=== PATIENT | female | born 1970 | race Caucasian/White ===

== ENCOUNTER → 2018-08-06 | Day surgery (SDC) | payer OTHER ==
[2018-08-03 14:35] LABS: BASOPHILS # (AUTO) 0.1 (0.0-0.1); BASOPHILS % 0.7 % (0.0-1.0); EOSINOPHILS # (AUTO) 0.3 (0.0-0.4); EOSINOPHILS % 2.9 % (0.0-6.0); HEMATOCRIT 42.6 % (34.2-44.1); HEMOGLOBIN 13.8 g/dL (12.0-16.0); LYMPHOCYTES # (AUTO) 2.8 (1.0-3.2); LYMPHOCYTES % 26.5 % (18.0-39.1); MEAN CORPUSCULAR HEMOGLOBIN 25.7 pg (28-32); MEAN CORPUSCULAR HGB CONC 32.4 g/dL (31-35); MEAN CORPUSCULAR VOLUME 79.3 fL (81-99); MONOCYTES # (AUTO) 0.4 (0.2-0.8); NEUTROPHILS % 65.2 % (38.7-80.0); PLATELET COUNT 263 x10e3/uL (140-360); RED BLOOD COUNT 5.37 x10e6/uL (3.6-5.1); RED CELL DISTRIBUTION WIDTH 14.6 % (11.7-14.4)
[2018-08-03 14:58] LABS: INR 0.88; PROTHROMBIN TIME 12.4 seconds (11.9-14.5)
[2018-08-03 15:01] LABS: ALANINE AMINOTRANSFERASE 35 IU/L (0-55); ALBUMIN 3.7 g/dL (3.5-5.0); ALBUMIN/GLOBULIN RATIO 1.1 (0.8-2.0); ALKALINE PHOSPHATASE 137 IU/L (40-150); ANION GAP 14.1 mmol/L (8-16); BLOOD UREA NITROGEN 12 mg/dL (7-26); BUN/CREATININE RATIO 16 (6-25); CARBON DIOXIDE 29 mmol/L (22-29); CHLORIDE 100 mmol/L (98-107); CREATININE, SERUM 0.75 mg/dL (0.57-1.11); EST GLOMERULAR FILTRATION RATE > 60 ML/MIN (60-); GLUCOSE 184 mg/dL (74-118); POTASSIUM 4.1 mmol/L (3.5-5.1); SODIUM 139 mmol/L (136-145)
[~2018-08-06] MED LIST: AMARYL4 MG PO; BENADRYL25 M1; BUDESONIDE0.5 MG/2 M NEB; CYCLOBENZAPRINE5 MG PO; CYMBALTA30 MG; DEXILANT60 MG; DICYCLOMINE HCL20 MG PO; FENOGLIDE40 MG PO; FENTANYL CITRATE/PF 100MCG/2 ML INJ ONE; GABAPENTIN400 MG PO; HUMULIN N100 UNITS/ SQ; HUMULIN R100 UNIT/2 SQ; LEVOTHYROXINE75 MCG PO; MIDAZOLAM HCL 2 MG/2 ML VIAL ONE; MORPHINE SULFAT30 M2 PO; NOVALOG; ONDANSETRON ODT8 MG; PAXIL40 MG PO; PRILOSEC20 MG PO; PROPOFOL IV EMULSION 10 MG/ML 50 ML VIAL ONE; REGLAN5 MG; SUCRALFATE; TALWIN30 MG/1 M1 PO; TIZANIDINE HCL4 M1; TRESIBA; ZOCOR40 MG PO; [UNRECOGNIZED DRUG - OTHER]; [UNRECOGNIZED DRUG - REMARK]
--- OUTSIDE RECORDS SUMMARY | 2018-08-06 08:32 | XMS REPORT ---
[facility] Address Unknown Phone Unavailable Care Team Providers [employer] Sales Manager Name Role Phone Unavailable Unavailable Payers Payer Name Policy Type Policy Number Effective Date Expiration Date Problems This patient has no known problems. Allergies, Adverse Reactions, Alerts Allergy Name Allergy Type Status Severity Reaction(s) Onset Date Inactive Date Treating Clinician Comments NSAIDS (Non-Steroidal Anti-Inflamma DA Active [place] 2017-08-29 00:00:00 Penicillins DA Active [place] 2017-08-29 00:00:00 Sulfa (Sulfonamide Antibiotics) DA Active [place] 2017-08-29 00:00:00 Medications This patient has no known medications. Encounters Start Date/Time End Date/Time Encounter Type Admission Type Attending Clinicians Care Facility Care Department Encounter ID 2018-08-05 00:00:00 2018-08-05 00:00:00 Outpatient [facility] [id number] 2018-05-13 11:16:00 2018-05-13 11:16:00 Outpatient [facility] [id number] 2018-04-19 00:00:00 2018-04-19 00:00:00 Outpatient [facility] [id number] 2018-03-18 00:00:00 2018-03-18 00:00:00 Outpatient [facility] [id number] 2018-03-12 00:00:00 2018-03-12 00:00:00 Outpatient [facility] [id number] 2018-02-16 00:00:00 2018-02-16 00:00:00 Outpatient [facility] [id number] 2018-02-10 13:33:08 2018-02-10 13:33:08 Outpatient [facility] [id number] 2018-02-04 00:00:00 2018-02-04 00:00:00 Outpatient [facility] [id number] 2018-01-21 10:52:33 2018-01-21 10:52:33 Outpatient [facility] [id number] 2017-12-29 00:00:00 2017-12-29 00:00:00 Outpatient [facility] [id number] 2017-10-29 10:59:31 2017-10-29 10:59:31 Outpatient [facility] [id number] 2017-10-28 00:00:00 2017-10-28 00:00:00 Outpatient [facility] [id number] 2017-09-25 00:00:00 2017-09-25 00:00:00 Outpatient [facility] [id number] 2017-09-21 00:00:00 2017-09-21 00:00:00 Outpatient [facility] [id number] 2017-09-14 00:00:00 2017-09-14 00:00:00 Outpatient [facility] [id number] 2017-09-14 00:00:00 2017-09-14 00:00:00 Outpatient [facility] [id number] 2017-09-09 00:00:00 2017-09-09 00:00:00 Outpatient [facility] [id number] 2017-09-07 15:04:01 2017-09-07 15:04:01 Outpatient [facility] [id number] 2017-08-13 10:55:26 2017-08-13 10:55:26 Outpatient [facility] [id number] 2017-07-06 00:00:00 2017-07-06 00:00:00 Outpatient [facility] [id number] 2017-06-25 08:52:46 2017-06-25 08:52:46 Outpatient [facility] [id number] 2017-06-25 08:39:40 2017-06-25 08:39:40 Outpatient [facility] [id number] 2017-06-25 08:28:44 2017-06-25 08:28:44 Outpatient [facility] [id number] 2017-06-25 08:02:52 2017-06-25 08:02:52 Outpatient [facility] [id number] 2017-06-22 13:08:43 2017-06-22 13:08:43 Outpatient [facility] [id number] 2017-06-22 00:00:00 2017-06-22 00:00:00 Outpatient [facility] [id number] 2017-06-22 00:00:00 2017-06-22 00:00:00 Outpatient [facility] [id number] 2017-06-18 00:00:00 2017-06-18 00:00:00 Outpatient [facility] [id number] 2017-05-21 10:20:59 2017-05-21 10:20:59 Outpatient [facility] [id number] 2017-05-21 00:00:00 2017-05-21 00:00:00 Outpatient [facility] [id number] Results Test Description Test Time Test Comments Text Results Atomic Results Result Comments - XR L-SPINE 2/3 VIEWS 2018-07-09 13:36:00 Name: RAFIQ AVENDAÑO [facility] : 1970 Age/S:47 /F [address] [facility] Unit#:[id number] Loc: [place] [address] Phys: Thomas Herbert TOP LIFT COMPRESSER Dis Date: PHONE #: [phone] Status: REG ER FAX #: [phone] Exam Date: 07/09/2018 Reason: PAIN EXAMS: CPT CODE: [id number] XR L-SPINE 2/3 VIEWS 25886 HISTORY: Pain. COMPARISON: None available. Lumbar spine series, 3 views: No acute fracture or dislocation. Vertebral body heights are maintained. Narrowed disc space at L5-S1 level. SI joints are preserved. IMPRESSION: No acute fracture or dislocation. Vertebral body heights are maintained. Vascular calcifications. at 1334 Reported and signed by: Fabio Quintana M.D. CC: Kobe Solano MD; Thomas Herbert Technologist: KARAN ORTEGA, RT(R),CT Trnscrpt Data: 07/09/2018 ([id number]) [id number] Orig Print D/T: S: 07/09/2018 (6666) PAGE 1 Signed Report
[2018-08-06 12:05] VITALS: BP 108/60
--- NOTE | 2018-08-06 19:30 | Operative Report ---
DATE OF PROCEDURE: 08/06/2018 SURGEON: Souarv Garcia MD PROCEDURE: Colonoscopy to 30 cm from the anal verge. INDICATIONS FOR PROCEDURE: Fecal incontinence, history of Crohn disease. MEDICATION: The patient was done under MAC. Please see anesthesiologist's note. PROCEDURE IN DETAIL: With the patient in left lateral decubitus position, flexible fiberoptic Olympus colonoscope was inserted into the rectum and advanced to approximately 30 cm from the anal verge. Scope could not be advanced any further due to large amount of retained fecal material. Whatever was visualized, the mucosa overlying the sigmoid and the rectum grossly appeared to be unremarkable. The scope was then retroflexed into the distal rectum where small internal hemorrhoids were noted, none of which was actively bleeding. The scope was then straightened out, it was subsequently withdrawn. The patient tolerated the procedure well. IMPRESSION: 1. Colonoscopy to approximately 30 cm from the anal verge, did not proceed any further secondary to poor prep. 2. Internal hemorrhoids, none actively bleeding. PLAN: The patient will need a repeat colonoscopy after a better prep. Sourav Garcia MD [facility] [place][id number] cc: Elaine Roth MD
== END | disposition home or self-care (01) ==
LOC: OR 08:28
PROVIDERS: ATTEND Internal Medicine Gastroenterology
DX: K50.90 Crohn's disease, unspecified, without complications (principal); K64.8 Other hemorrhoids; K59.00 Constipation, unspecified; G47.33 Obstructive sleep apnea (adult) (pediatric); D64.9 Anemia, unspecified; E11.9 Type 2 diabetes mellitus without complications; M32.9 Systemic lupus erythematosus, unspecified; M06.9 Rheumatoid arthritis, unspecified; K21.9 Gastro-esophageal reflux disease without esophagitis; K76.0 Fatty (change of) liver, not elsewhere classified; M79.7 Fibromyalgia; F32.9 Major depressive disorder, single episode, unspecified; F41.9 Anxiety disorder, unspecified; F17.200 Nicotine dependence, unspecified, uncomplicated; Z88.0 Allergy status to penicillin; Z88.2 Allergy status to sulfonamides; Z88.8 Allergy status to other drugs, medicaments and biological substances; Z01.812 Encounter for preprocedural laboratory examination; Z79.4 Long term (current) use of insulin; Z86.19 Personal history of other infectious and parasitic diseases
CPT/HCPCS: 36415 ×2; 45378; 80053; 82948; 85025; 85610; 85730; J2250; J2704

== ENCOUNTER → 2018-09-25 | Day surgery (SDC) | payer OTHER ==
[~2018-09-25] MED LIST changes: +GLUCAGON FOR INJ 1 MG VIAL ONE; +HYOSCYAMINE SULFATE 0.5 MG/ML INJ ONE; +LIDOCAINE HCL 2% LOCAL INJ 5 ML SDV VIAL INJ ONE; -NOVALOG; +NOVALOG SC; -TIZANIDINE HCL4 M1; +TIZANIDINE HCL4 M1 PO
[2018-09-25 10:20] VITALS: BP 111/66
--- NOTE | 2018-09-25 11:19 | Operative Report ---
DATE OF PROCEDURE: 09/25/2018 SURGEON: Sourav Garcia MD PROCEDURE: Colonoscopy and polypectomy with biopsies. INDICATIONS FOR PROCEDURE: History of Crohn disease, fecal urgency, rule out IBD exacerbation. MEDICATIONS: The patient was done under MAC, please see anesthesiologist's note. PROCEDURE IN DETAIL: With the patient in left lateral decubitus position, flexible fiberoptic Olympus colonoscope was inserted into the rectum with ease and advanced all the way to the cecum. A minute polyp was noted in the cecal pouch that was removed for hot biopsy forceps and site was hemoclipped. Ileocecal valve was intubated and the scope was advanced into the terminal ileum. Biopsies were obtained. The scope was then withdrawn back into the colon. It was then withdrawn slowly. Mucosa overlying the ascending and the transverse appeared to be within normal limits. Mild patchy inflammatory changes were noted in the left colon and rectum. Random biopsies were obtained. Two polyps were hot biopsied from the sigmoid. The scope was then retroflexed into the distal rectum. Small internal hemorrhoids were noted, none of which was actively bleeding. The scope was then straightened out, it was subsequently withdrawn. The patient tolerated the procedure well. IMPRESSION: 1. Cecal polyp hot biopsied, site hemoclipped. 2. Mild patchy left-sided colitis. 3. Sigmoid colon polyps x2, hot biopsied. 4. Proctitis, mild, biopsied. 5. Internal hemorrhoids, none actively bleeding. PLAN: Follow up histology. Follow up stool studies. Initiate VSL#3 one p.o. daily. The patient might benefit from a followup colonoscopy in 3 years. Sourav Garcia MD [facility] [place] /[id number] cc: Skyla Bourgeois DO
[2018-09-25 13:38] LABS: C DIFFICILE TOXIN A&B AMP PROB NEGATIVE (NEGATIVE)
[2018-09-25 14:02] LABS: WBC,FECAL (FECAL LACTOFERRIN) NEGATIVE (NEGATIVE)
== END | disposition home or self-care (01) ==
LOC: OR 05:40
PROVIDERS: ATTEND Internal Medicine Gastroenterology
DX: D12.5 Benign neoplasm of sigmoid colon (principal); K59.00 Constipation, unspecified; K50.90 Crohn's disease, unspecified, without complications; K21.9 Gastro-esophageal reflux disease without esophagitis; R12 Heartburn; R11.0 Nausea; G47.33 Obstructive sleep apnea (adult) (pediatric); E03.9 Hypothyroidism, unspecified; K63.5 Polyp of colon; K51.50 Left sided colitis without complications; K62.89 Other specified diseases of anus and rectum; K64.8 Other hemorrhoids; Z01.810 Encounter for preprocedural cardiovascular examination
CPT/HCPCS: 36415; 45384; 82948; 83630; 83993; 86256; 86671; 87045; 87177; 87328; 87493; 93005; J1610; J1980; J2001; J2250; J2704; 45380

== ENCOUNTER → 2020-01-02 | Day surgery (SDC) | payer OTHER ==
[~2020-01-02] MED LIST changes: -BENADRYL25 M1; +BENADRYL25 M1 PO; +BENTYL10 MG/1 ML IV; -DEXILANT60 MG; +DEXILANT60 MG PO; -FENTANYL CITRATE/PF 100MCG/2 ML INJ ONE; -GLUCAGON FOR INJ 1 MG VIAL ONE; +HYDROXYZINE HCL25 MG PO; -HYOSCYAMINE SULFATE 0.5 MG/ML INJ ONE; +INSULIN REGULAR, HUMAN 100 UNIT/1 ML 3ML VIAL ONE; -LIDOCAINE HCL 2% LOCAL INJ 5 ML SDV VIAL INJ ONE; +LYRICA100 MG PO; -MIDAZOLAM HCL 2 MG/2 ML VIAL ONE; -PROPOFOL IV EMULSION 10 MG/ML 50 ML VIAL ONE; +REGLAN10 MG PO; +SUCRALFATE1 GM PO; -TRESIBA; +TRESIBA SQ; +ZOFRAN8 MG PO
[2020-01-02 10:15] VITALS: BP 124/67
--- NOTE | 2020-01-02 12:33 | Operative Report ---
DATE OF PROCEDURE: 01/02/2020 SURGEON: Sourav Garcia MD PROCEDURE: EGD with esophageal dilatation and biopsies. INDICATIONS FOR PROCEDURE: Dysphagia. MEDICATIONS: The patient was done under MAC, please see anesthesiologist's note. PROCEDURE IN DETAIL: With the patient in the left lateral decubitus position, a flexible fiberoptic Olympus gastroscope was introduced into the esophagus under direct visualization without any difficulty. There was some patchy erythema noted in distal esophagus. A mild stricture was noted at the GE junction that was dilated to size 52-[place]. The scope was then advanced with ease into the stomach. Mucosa overlying the antrum and the body revealed some patchy intense erythema and low-grade edema in the antrum, and biopsies were obtained from the antrum and the body. The pylorus was intubated with ease and the scope was advanced all the way to the second portion of the duodenum. Biopsies were obtained from the proximal second portion and duodenal bulb. The scope was then withdrawn back into the stomach and retroflexed, and mucosa overlying the fundus and the cardia appeared to be within normal limits. The scope was then straightened out, it was subsequently withdrawn, and the patient tolerated the procedure well. IMPRESSION: 1. Distal esophagitis, mild. 2. Esophageal stricture GE junction, dilated to size 52-[place] Newton. 3. Gastritis, biopsied, biopsies sent to stain for Helicobacter pylori. 4. Rule out sprue. PLAN: Follow up histology. Continue Dexilant 60 mg one p.o. before meals b.i.d. and Carafate 1 g p.o. before meals t.i.d. and at bedtime. Sourav Garcia MD [facility] [place] /[id number] cc: Skyla Bourgeois DO
== END | disposition home or self-care (01) ==
LOC: OR 07:10
PROVIDERS: ATTEND Internal Medicine Gastroenterology
DX: K22.2 Esophageal obstruction (principal); K29.70 Gastritis, unspecified, without bleeding; K20.9 Esophagitis, unspecified; G47.33 Obstructive sleep apnea (adult) (pediatric); F41.9 Anxiety disorder, unspecified; E11.9 Type 2 diabetes mellitus without complications; B15.9 Hepatitis A without hepatic coma; E66.01 Morbid (severe) obesity due to excess calories; Z88.0 Allergy status to penicillin; Z88.2 Allergy status to sulfonamides; Z88.8 Allergy status to other drugs, medicaments and biological substances; Z01.810 Encounter for preprocedural cardiovascular examination; Z01.812 Encounter for preprocedural laboratory examination; Z11.59 Encounter for screening for other viral diseases; Z79.4 Long term (current) use of insulin
CPT/HCPCS: 36415; 43239; 43450; 82948; 93005; U0002; J1817

== ENCOUNTER 2021-12-05 15:34 | Emergency (ER) | payer OTHER ==
[~2021-12-05] VITALS: Ht 170.2 cm; Wt 102.5 kg
[~2021-12-05 15:34] MED LIST changes: +BASAGLAR K100 UNIT/1 SC; -INSULIN REGULAR, HUMAN 100 UNIT/1 ML 3ML VIAL ONE; +VICODIN HP 10-1 EAC1 PO
[2021-12-05] MEDS ORDERED: SODIUM CHLORIDE 0.9% 1000ML 1,000 ML IV ONE (15:45)
[2021-12-05] MEDS ORDERED: ONDANSETRON HCL INJ 2MG/ML 2ML 2 MG/ML VIAL IV PRN (15:45)
[2021-12-05] MEDS ORDERED: INSULIN REGULAR, HUMAN 100 UNIT/1 ML SQ ONE (16:00)
[2021-12-05 16:20] LABS: BASOPHILS # (AUTO) 0.1 (0.0-0.1); BASOPHILS % 0.6 % (0.0-1.0); EOSINOPHILS # (AUTO) 0.2 (0.0-0.4); EOSINOPHILS % 2.2 % (0.0-6.0); HEMATOCRIT 43.6 % (34.2-44.1); LYMPHOCYTES # (AUTO) 3.2 (1.0-3.2); LYMPHOCYTES % 32.9 % (18.0-39.1); MEAN CORPUSCULAR HEMOGLOBIN 21.5 pg (28-32); MEAN CORPUSCULAR HGB CONC 29.8 g/dL (31-35); MEAN CORPUSCULAR VOLUME 71.9 fL (81-99); MONOCYTES # (AUTO) 0.5 (0.2-0.8); MONOCYTES % 4.7 % (4.4-11.3); NEUTROPHILS # (AUTO) 5.7 (2.1-6.9); NEUTROPHILS % 59.1 % (38.7-80.0); PLATELET COUNT 326 x10e3/uL (140-360); RED BLOOD COUNT 6.06 x10e6/uL (3.6-5.1); RED CELL DISTRIBUTION WIDTH 17.2 % (11.7-14.4)
[2021-12-05 16:22] LABS: CLARITY,URINE SL CLOUDY (CLEAR); COLOR,URINE YELLOW (YELLOW); LEUKOCYTE ESTERASE ,URINE NEGATIVE (NEGATIVE); NITRITE,URINE NEGATIVE (NEGATIVE); PROTEIN,URINE DIPSTICK NEGATIVE (NEGATIVE)
[2021-12-05 16:23] LABS: KETONES,URINE NEGATIVE (NEGATIVE); URINE UROBILINOGEN 0.2 mg/dL (0.2 - 1)
[2021-12-05 16:41] LABS: BACTERIA,URINE MODERATE /HPF; EPITHELIAL CELLS,URINE MODERATE /LPF; WBC,URINE (MAN) 0-5 /HPF (0-5); YEAST,URINE MODERATE
[2021-12-05 16:42] LABS: ALANINE AMINOTRANSFERASE 23 IU/L (0-55); ALBUMIN 3.5 g/dL (3.5-5.0); ALBUMIN/GLOBULIN RATIO 0.9 (0.8-2.0); ALKALINE PHOSPHATASE 160 IU/L (40-150); ANION GAP 20.2 mmol/L (8-16); BLOOD UREA NITROGEN 12 mg/dL (7-26); BUN/CREATININE RATIO 15 (6-25); CARBON DIOXIDE 21 mmol/L (22-29); CHLORIDE 96 mmol/L (98-107); CREATINE KINASE 20 IU/L (29-168); CREATININE, SERUM 0.81 mg/dL (0.57-1.11); POTASSIUM 4.2 mmol/L (3.5-5.1); SODIUM 133 mmol/L (136-145)
[2021-12-05 16:45] LABS: GLUCOSE 447 mg/dL (74-118)
[2021-12-05 17:24] LABS: ABG PCO2 42 mmHg (35-45); ABG PH 7.42 (7.35-7.45); ABG PO2 69 mmHg (80-105)
[2021-12-05 17:25] LABS: ABG HCO3 27 mmol/L (22-26); ABG TCO2 28
[2021-12-05] MEDS ORDERED: DIFLUCAN150 MG PO (18:01)
[2021-12-05 18:06] VITALS: BP 138/77
[2021-12-09] MEDS ORDERED: VASCEPA1 GM (07:37)
== END 2021-12-05 18:08 | disposition home or self-care (01) ==
LOC: ER 15:42
DX: E11.65 Type 2 diabetes mellitus with hyperglycemia (principal); J44.9 Chronic obstructive pulmonary disease, unspecified; E03.9 Hypothyroidism, unspecified; K21.9 Gastro-esophageal reflux disease without esophagitis; K76.9 Liver disease, unspecified; E78.5 Hyperlipidemia, unspecified
CPT/HCPCS: 36415; 71045; 80053; 81001; 82550; 82553; 82805; 82948; 84484; 85025; 93005; 99283; J1817; J7030

== ENCOUNTER → 2021-12-09 | Day surgery (SDC) | payer OTHER ==
[2021-12-05 14:16] LABS: BASOPHILS # (AUTO) 0.1 (0.0-0.1); BASOPHILS % 0.7 % (0.0-1.0); EOSINOPHILS # (AUTO) 0.2 (0.0-0.4); EOSINOPHILS % 2.4 % (0.0-6.0); HEMATOCRIT 43.7 % (34.2-44.1); HEMOGLOBIN 12.9 g/dL (12.0-16.0); LYMPHOCYTES # (AUTO) 2.7 (1.0-3.2); LYMPHOCYTES % 29.3 % (18.0-39.1); MEAN CORPUSCULAR HEMOGLOBIN 21.4 pg (28-32); MEAN CORPUSCULAR HGB CONC 29.5 g/dL (31-35); MEAN CORPUSCULAR VOLUME 72.5 fL (81-99); MONOCYTES # (AUTO) 0.5 (0.2-0.8); NEUTROPHILS # (AUTO) 5.8 (2.1-6.9); NEUTROPHILS % 62.1 % (38.7-80.0); PLATELET COUNT 337 x10e3/uL (140-360); RED BLOOD COUNT 6.03 x10e6/uL (3.6-5.1); RED CELL DISTRIBUTION WIDTH 17.1 % (11.7-14.4)
[2021-12-05 14:30] LABS: INR 0.87; PROTHROMBIN TIME 12.6 seconds (11.9-14.5)
[2021-12-05 14:31] LABS: PARTIAL THROMBOPLASTIN TIME 25.2 seconds (23.8-35.5)
[2021-12-05 14:40] LABS: ALBUMIN 3.4 g/dL (3.5-5.0); ALBUMIN/GLOBULIN RATIO 0.9 (0.8-2.0); ANION GAP 17.3 mmol/L (8-16); CALCIUM 9.2 mg/dL (8.4-10.2); CREATININE, SERUM 0.82 mg/dL (0.57-1.11); POTASSIUM 4.3 mmol/L (3.5-5.1)
[~2021-12-09] MED LIST changes: +DIFLUCAN150 MG PO; +FENTANYL CITRATE/PF 100MCG/2 ML INJ ONE; +GLYCOPYRROLATE INJ 0.2 MG/ML VIAL ONE; +MIDAZOLAM HCL 2 MG/2 ML VIAL ONE; +PROPOFOL IV EMULSION 10 MG/ML 20 ML VIAL ONE; +VASCEPA1 GM
[2021-12-09 09:59] VITALS: BP 133/78
[2021-12-14 22:09] LABS: ENDOMYSIAL ANTIBODIES, IGA Negative (Negative)
== END | disposition home or self-care (01) ==
LOC: OR 07:54
PROVIDERS: ATTEND Internal Medicine Gastroenterology
DX: K22.70 Barrett's esophagus without dysplasia (principal); D12.3 Benign neoplasm of transverse colon; K31.7 Polyp of stomach and duodenum; K29.70 Gastritis, unspecified, without bleeding; K50.90 Crohn's disease, unspecified, without complications; K20.90 Esophagitis, unspecified without bleeding; K59.00 Constipation, unspecified; K21.9 Gastro-esophageal reflux disease without esophagitis; K74.60 Unspecified cirrhosis of liver; D64.9 Anemia, unspecified; J44.9 Chronic obstructive pulmonary disease, unspecified; G47.33 Obstructive sleep apnea (adult) (pediatric); E11.9 Type 2 diabetes mellitus without complications; F41.9 Anxiety disorder, unspecified; F17.200 Nicotine dependence, unspecified, uncomplicated; Z88.0 Allergy status to penicillin; Z88.8 Allergy status to other drugs, medicaments and biological substances; Z88.2 Allergy status to sulfonamides; Z01.810 Encounter for preprocedural cardiovascular examination; Z01.812 Encounter for preprocedural laboratory examination; Z20.822 Contact with and (suspected) exposure to COVID-19; Z79.4 Long term (current) use of insulin; Z79.899 Other long term (current) drug therapy
CPT/HCPCS: 0223U; 36415 ×2; 43239; 43450; 45380; 80053; 82784; 82948; 83516; 85025; 85610; 85730; 86141; 86256; 93005; C9113; J2250; J2704; J3010; 45378

== ENCOUNTER 2022-07-18 11:37 | Emergency (ER) | payer OTHER ==
[~2022-07-18] VITALS: Ht 172.7 cm; Wt 101.6 kg
[~2022-07-18 11:37] MED LIST changes: -FENTANYL CITRATE/PF 100MCG/2 ML INJ ONE; -GLYCOPYRROLATE INJ 0.2 MG/ML VIAL ONE; -MIDAZOLAM HCL 2 MG/2 ML VIAL ONE; -PROPOFOL IV EMULSION 10 MG/ML 20 ML VIAL ONE
[2022-07-18] MEDS ORDERED: SODIUM CHLORIDE 0.9% 1000ML 2,000 ML IV ONE (12:30)
[2022-07-18] MEDS ORDERED: FENTANYL CITRATE/PF 100MCG/2 ML INJ IV ONE (12:30)
[2022-07-18 12:36] LABS: BASOPHILS # (AUTO) 0.1 (0.0-0.1); BASOPHILS % 0.5 % (0.0-1.0); EOSINOPHILS # (AUTO) 0.2 (0.0-0.4); EOSINOPHILS % 1.2 % (0.0-6.0); HEMATOCRIT 50.2 % (34.2-44.1); HEMOGLOBIN 14.9 g/dL (12.0-16.0); LYMPHOCYTES # (AUTO) 1.8 (1.0-3.2); LYMPHOCYTES % 10.6 % (18.0-39.1); MEAN CORPUSCULAR HEMOGLOBIN 20.8 pg (28-32); MEAN CORPUSCULAR HGB CONC 29.7 g/dL (31-35); MEAN CORPUSCULAR VOLUME 70.1 fL (81-99); MONOCYTES # (AUTO) 0.5 (0.2-0.8); MONOCYTES % 3.2 % (4.4-11.3); NEUTROPHILS # (AUTO) 14.3 (2.1-6.9); NEUTROPHILS % 84.1 % (38.7-80.0); PLATELET COUNT 395 x10e3/uL (140-360); RED CELL DISTRIBUTION WIDTH 18.6 % (11.7-14.4)
[2022-07-18 12:38] LABS: RED BLOOD COUNT 7.16 x10e6/uL (3.6-5.1)
[2022-07-18 12:42] LABS: INR 1.1; PROTHROMBIN TIME 14.4 seconds (11.9-14.5)
[2022-07-18 12:50] LABS: ALBUMIN 3.3 g/dL (3.5-5.0); CALCIUM 8.5 mg/dL (8.4-10.2); CREATININE, SERUM 0.93 mg/dL (0.57-1.11)
[2022-07-18 12:51] LABS: MAGNESIUM 1.5 MG/DL (1.3-2.1)
[2022-07-18] MEDS ORDERED: IOPAMIDOL 370 MG/ML 100 ML INFUS..BTL INJ ONE (13:17)
[2022-07-18] MEDS ORDERED: METRONIDAZOLE500 MG PO (14:19)
[2022-07-18] MEDS ORDERED: CIPRO500 MG PO ×2 (14:19→15:27)
[2022-07-18] MEDS ORDERED: PROMETHAZINE HC25 M1 PO (14:19)
[2022-07-18 15:19] LABS: CLARITY,URINE SL CLOUDY (CLEAR); COLOR,URINE YELLOW (YELLOW)
[2022-07-18 15:20] LABS: KETONES,URINE NEGATIVE (NEGATIVE); LEUKOCYTE ESTERASE ,URINE TRACE (NEGATIVE); NITRITE,URINE NEGATIVE (NEGATIVE); PROTEIN,URINE DIPSTICK 1+ (NEGATIVE); URINE UROBILINOGEN 0.2 mg/dL (0.2 - 1)
[2022-07-18 15:30] LABS: AMORPHOUS SEDIMENT,URINE MODERATE (FEW); BACTERIA,URINE MODERATE /HPF; EPITHELIAL CELLS,URINE MODERATE /LPF
== END 2022-07-18 14:46 | disposition home or self-care (01) ==
LOC: ER 11:42
DX: R11.2 Nausea with vomiting, unspecified (principal); K52.9 Noninfective gastroenteritis and colitis, unspecified; E86.0 Dehydration; E11.65 Type 2 diabetes mellitus with hyperglycemia; E78.5 Hyperlipidemia, unspecified; E03.9 Hypothyroidism, unspecified; K76.9 Liver disease, unspecified
CPT/HCPCS: 36415; 74177; 80053; 81001; 83605; 83690; 83735; 85025; 85610; 87040; 87071; 87205; 99284; J3010; J7030; Q9967

== ENCOUNTER 2022-09-23 12:27 | Inpatient (IN) | payer OTHER ==
[~2022-09-23] VITALS: Ht 172.7 cm; Wt 101.6 kg
[~2022-09-23 12:27] MED LIST changes: +CIPRO500 MG PO; +METRONIDAZOLE500 MG PO; +PROMETHAZINE HC25 M1 PO
[2022-09-23] MEDS ORDERED: SODIUM CHLORIDE 0.9% 1000ML 1,000 ML IV ONE (13:15)
[2022-09-23] MEDS: ONDANSETRON HCL INJ 2MG/ML 2ML 2 MG/ML VIAL IV PRN ×3 (13:16→20:37)
[2022-09-23 13:25] LABS: BASOPHILS # (AUTO) 0.1 (0.0-0.1); BASOPHILS % 0.4 % (0.0-1.0); EOSINOPHILS # (AUTO) 0.3 (0.0-0.4); EOSINOPHILS % 1.4 % (0.0-6.0); HEMATOCRIT 42.4 % (34.2-44.1); LYMPHOCYTES # (AUTO) 3.1 (1.0-3.2); LYMPHOCYTES % 18.1 % (18.0-39.1); MEAN CORPUSCULAR HEMOGLOBIN 21.2 pg (28-32); MEAN CORPUSCULAR HGB CONC 30.7 g/dL (31-35); MEAN CORPUSCULAR VOLUME 69.2 fL (81-99); MONOCYTES # (AUTO) 0.8 (0.2-0.8); MONOCYTES % 4.6 % (4.4-11.3); NEUTROPHILS # (AUTO) 12.9 (2.1-6.9); NEUTROPHILS % 75.1 % (38.7-80.0); PLATELET COUNT 334 x10e3/uL (140-360); RED BLOOD COUNT 6.13 x10e6/uL (3.6-5.1); RED CELL DISTRIBUTION WIDTH 18.6 % (11.7-14.4)
[2022-09-23 13:44] LABS: ALBUMIN 3.6 g/dL (3.5-5.0); ALBUMIN/GLOBULIN RATIO 1.1 (0.8-2.0); ANION GAP 16.9 mmol/L (8-16); CALCIUM 9.6 mg/dL (8.4-10.2); CREATININE, SERUM 0.74 mg/dL (0.57-1.11); POTASSIUM 3.9 mmol/L (3.5-5.1)
[2022-09-23 13:45] LABS: LIPASE 16 U/L (8-78)
[2022-09-23] MEDS: METRONIDAZOLE 500MG/NS 100ML 100 ML IV SCH ×2 (14:17→20:35)
[2022-09-23] MEDS ORDERED: ONDANSETRON HCL INJ 2MG/ML 2ML 2 MG/ML VIAL IV PRN (14:45)
[2022-09-23] MEDS ORDERED: Morphine 4mg INJECTION 4 MG/ML INJ IV PRN (14:45)
[2022-09-23 15:36] LABS: CLARITY,URINE SL CLOUDY (CLEAR); COLOR,URINE YELLOW (YELLOW)
[2022-09-23 15:37] LABS: KETONES,URINE NEGATIVE (NEGATIVE); LEUKOCYTE ESTERASE ,URINE TRACE (NEGATIVE); NITRITE,URINE NEGATIVE (NEGATIVE); PROTEIN,URINE DIPSTICK TRACE (NEGATIVE); URINE UROBILINOGEN 0.2 mg/dL (0.2 - 1)
[2022-09-23 15:53] LABS: BACTERIA,URINE MODERATE /HPF; EPITHELIAL CELLS,URINE MODERATE /LPF
[2022-09-23] MEDS: Morphine 4mg INJECTION 4 MG/ML INJ IV PRN ×2 (16:01→20:38)
[2022-09-23] MEDS ORDERED: ACETAMINOPHEN 325 MG TAB PO PRN (17:15)
[2022-09-23] MEDS ORDERED: HYDRALAZINE HCL 20 MG/ML VIAL IV PRN (17:15)
[2022-09-23] MEDS ORDERED: POLYETHYLENE GLYCOL 3350 17 GM PACK PO PRN (17:15)
[2022-09-23 20:00] VITALS: BP_SYST 118; BP_SYST 124; BP_DIAS 68; BP_DIAS 72; PULSE 67; PULSE 76; RESP 18; RESP 20; TEMP 97.6; O2SAT 99
[2022-09-23] MEDS: SODIUM CHLORIDE 0.9% 1000ML 1,000 ML IV SCH ×2 (20:36→22:45)
[2022-09-23] MEDS ORDERED: TEMAZEPAM 15 MG CAP PO PRN (21:00)
[2022-09-24] VITALS (8 sets, daily range): BP systolic 113–138; BP diastolic 57–80; PULSE 64–91; RESP 18–20; TEMP 97.9–98.8; O2SAT 96–99
[2022-09-24] MEDS ORDERED: LIOTHYRONINE SO5 MCG PO (00:07)
[2022-09-24] MEDS ORDERED: METOCLOPRAMIDE HCL 10 MG/2ML VIAL IV STA (00:43)
[2022-09-24] MEDS: METRONIDAZOLE 500MG/NS 100ML 100 ML IV SCH ×4 (01:26→21:43)
[2022-09-24] MEDS: SODIUM CHLORIDE 0.9% 1000ML 1,000 ML IV SCH ×3 (06:07→21:43)
[2022-09-24] MEDS: METOCLOPRAMIDE HCL 10 MG/2ML VIAL IV SCH ×4 (06:07→23:32)
[2022-09-24 06:12] LABS: BASOPHILS % 0.1 % (0.0-1.0); EOSINOPHILS # (AUTO) 0.2 (0.0-0.4); EOSINOPHILS % 2.1 % (0.0-6.0); HEMATOCRIT 40.8 % (34.2-44.1); HEMOGLOBIN 12.3 g/dL (12.0-16.0); LYMPHOCYTES # (AUTO) 2.6 (1.0-3.2); LYMPHOCYTES % 26.1 % (18.0-39.1); MEAN CORPUSCULAR HEMOGLOBIN 21.2 pg (28-32); MEAN CORPUSCULAR HGB CONC 30.1 g/dL (31-35); MEAN CORPUSCULAR VOLUME 70.5 fL (81-99); MONOCYTES # (AUTO) 0.4 (0.2-0.8); MONOCYTES % 3.9 % (4.4-11.3); NEUTROPHILS # (AUTO) 6.7 (2.1-6.9); NEUTROPHILS % 67.4 % (38.7-80.0); PLATELET COUNT 305 x10e3/uL (140-360); RED BLOOD COUNT 5.79 x10e6/uL (3.6-5.1); RED CELL DISTRIBUTION WIDTH 18.6 % (11.7-14.4)
[2022-09-24 06:39] LABS: ANION GAP 14.6 mmol/L (8-16); CALCIUM 9.3 mg/dL (8.4-10.2); CREATININE, SERUM 0.65 mg/dL (0.57-1.11); POTASSIUM 3.6 mmol/L (3.5-5.1)
[2022-09-24 07:05] LABS: CHOL/HDL RATIO 7.4 (3.0-3.6); MAGNESIUM 1.6 MG/DL (1.3-2.1); PHOSPHORUS 3.8 MG/DL (2.3-4.7)
[2022-09-24 07:25] LABS: THYROID STIMULATING HORMONE 1.84 uIU/mL (0.350-4.940)
[2022-09-24] MEDS ORDERED: FAMOTIDINE 20 MG TAB PO SCH (07:30)
[2022-09-24] MEDS: DICYCLOMINE HCL 20 MG TAB PO SCH ×4 (08:46→21:41)
[2022-09-24] MEDS: DOCUSATE SODIUM 100 MG CAP PO SCH ×2 (08:46→17:00)
[2022-09-24] MEDS ORDERED: MAGNESIUM SULFATE 2GM/50ML 50 ML IV ONE (09:30)
[2022-09-24] MEDS ORDERED: DIPHENHYDRAMINE HCL 25 MG CAP PO PRN (09:30)
[2022-09-24] MEDS: ONDANSETRON HCL INJ 2MG/ML 2ML 2 MG/ML VIAL IV PRN ×3 (10:15→23:32)
[2022-09-24] MEDS: Morphine 4mg INJECTION 4 MG/ML INJ IV PRN ×3 (10:16→23:32)
[2022-09-24] MEDS ORDERED: DICYCLOMINE HCL 20 MG TAB PO SCH (15:00)
[2022-09-24 16:08] LABS: WBC,FECAL (FECAL LACTOFERRIN) POSITIVE (NEGATIVE)
[2022-09-24] MEDS: TIZANIDINE HCL 4 MG TAB PO SCH ×2 (16:08→21:42)
[2022-09-24] MEDS ORDERED: PANTOPRAZOLE SOD 40 MG TABEC PO SCH (17:00)
[2022-09-24] MEDS: PREGABALIN 50 MG CAP PO SCH (17:17)
[2022-09-24] MEDS: DULOXETINE HCL 30 MG DELAYED RELEASE PO SCH (17:17)
[2022-09-24 23:24] LABS: % IRON SATURATION 7 % (15-50); IRON 28 ug/dL (50-170); TOTAL IRON BINDING CAPACITY 416 ug/dL (261-478); TRANSFERRIN 297 mg/dL (180-382)
[2022-09-25] VITALS (8 sets, daily range): BP systolic 119–142; BP diastolic 57–91; PULSE 63–75; RESP 15–20; TEMP 97.3–98.3; O2SAT 94–99
[2022-09-25] MEDS ORDERED: CYANOCOBALAMIN INJ 1,000 MCG/ML VIAL IM ONE (00:45)
[2022-09-25] MEDS: METRONIDAZOLE 500MG/NS 100ML 100 ML IV SCH ×4 (02:29→21:15)
[2022-09-25] MEDS: SODIUM CHLORIDE 0.9% 1000ML 1,000 ML IV SCH (05:24)
[2022-09-25] MEDS: METOCLOPRAMIDE HCL 10 MG/2ML VIAL IV SCH ×3 (05:24→16:34)
[2022-09-25] MEDS: LEVOTHYROXINE SODIUM 75 MCG TAB PO SCH (05:24)
[2022-09-25] MEDS: Morphine 4mg INJECTION 4 MG/ML INJ IV PRN ×4 (05:38→22:05)
[2022-09-25] MEDS: ONDANSETRON HCL INJ 2MG/ML 2ML 2 MG/ML VIAL IV PRN ×4 (05:38→22:05)
[2022-09-25 06:20] LABS: BASOPHILS % 0.4 % (0.0-1.0); EOSINOPHILS # (AUTO) 0.2 (0.0-0.4); EOSINOPHILS % 3.6 % (0.0-6.0); HEMOGLOBIN 10.6 g/dL (12.0-16.0); LYMPHOCYTES # (AUTO) 1.8 (1.0-3.2); LYMPHOCYTES % 31.5 % (18.0-39.1); MEAN CORPUSCULAR HEMOGLOBIN 21.4 pg (28-32); MEAN CORPUSCULAR HGB CONC 30.3 g/dL (31-35); MEAN CORPUSCULAR VOLUME 70.6 fL (81-99); MONOCYTES # (AUTO) 0.3 (0.2-0.8); MONOCYTES % 4.8 % (4.4-11.3); NEUTROPHILS # (AUTO) 3.3 (2.1-6.9); NEUTROPHILS % 59.5 % (38.7-80.0); PLATELET COUNT 190 x10e3/uL (140-360); RED BLOOD COUNT 4.96 x10e6/uL (3.6-5.1); RED CELL DISTRIBUTION WIDTH 16.9 % (11.7-14.4)
[2022-09-25 06:37] LABS: ANION GAP 10.7 mmol/L (8-16); CALCIUM 8.4 mg/dL (8.4-10.2); CREATININE, SERUM 0.58 mg/dL (0.57-1.11); MAGNESIUM 1.9 MG/DL (1.3-2.1); POTASSIUM 3.7 mmol/L (3.5-5.1)
[2022-09-25] MEDS ORDERED: IRON SUCROSE 100 MG in SODIUM CHLORIDE 0.9% 100 ML IV SCH (08:00)
[2022-09-25] MEDS: DOCUSATE SODIUM 100 MG CAP PO SCH ×2 (09:00→16:33)
[2022-09-25] MEDS: IRON SUCROSE 100 MG in SODIUM CHLORIDE 0.9% 100 ML IV SCH (09:40)
[2022-09-25] MEDS: CYANOCOBALAMIN INJ 1,000 MCG/ML VIAL IM SCH (09:42)
[2022-09-25] MEDS: DICYCLOMINE HCL 20 MG TAB PO SCH ×4 (09:42→21:15)
[2022-09-25] MEDS: DULOXETINE HCL 30 MG DELAYED RELEASE PO SCH ×2 (09:42→16:33)
[2022-09-25] MEDS: TIZANIDINE HCL 4 MG TAB PO SCH ×3 (09:43→22:05)
[2022-09-25] MEDS: PREGABALIN 50 MG CAP PO SCH ×2 (09:43→16:34)
[2022-09-25] MEDS ORDERED: DEXTROSE 50% SYRINGE 50 ML IV PRN (15:00)
[2022-09-25] MEDS: INSULIN LISPRO 100 UNIT/1 ML 3ML VIAL SQ SCH ×2 (16:33→22:15)
[2022-09-26] MEDS: METOCLOPRAMIDE HCL 10 MG/2ML VIAL IV SCH ×3 (00:40→12:36)
[2022-09-26] MEDS: METRONIDAZOLE 500MG/NS 100ML 100 ML IV SCH ×3 (02:13→13:53)
[2022-09-26 04:35] VITALS: BP 143/77; PULSE 20; RESP 20; TEMP 97.6; O2SAT 98
[2022-09-26] MEDS: LEVOTHYROXINE SODIUM 75 MCG TAB PO SCH (05:22)
[2022-09-26] MEDS: ONDANSETRON HCL INJ 2MG/ML 2ML 2 MG/ML VIAL IV PRN ×3 (05:45→16:41)
[2022-09-26] MEDS: Morphine 4mg INJECTION 4 MG/ML INJ IV PRN ×3 (05:45→16:42)
[2022-09-26 05:58] LABS: BASOPHILS % 0.4 % (0.0-1.0); EOSINOPHILS # (AUTO) 0.3 (0.0-0.4); EOSINOPHILS % 5.3 % (0.0-6.0); HEMATOCRIT 34.3 % (34.2-44.1); HEMOGLOBIN 10.1 g/dL (12.0-16.0); LYMPHOCYTES # (AUTO) 1.3 (1.0-3.2); MEAN CORPUSCULAR HEMOGLOBIN 21.1 pg (28-32); MEAN CORPUSCULAR HGB CONC 29.4 g/dL (31-35); MEAN CORPUSCULAR VOLUME 71.8 fL (81-99); MONOCYTES # (AUTO) 0.2 (0.2-0.8); MONOCYTES % 4.9 % (4.4-11.3); NEUTROPHILS % 61.6 % (38.7-80.0); PLATELET COUNT 189 x10e3/uL (140-360); RED BLOOD COUNT 4.78 x10e6/uL (3.6-5.1); RED CELL DISTRIBUTION WIDTH 16.1 % (11.7-14.4)
[2022-09-26 06:26] LABS: ANION GAP 11.9 mmol/L (8-16); CALCIUM 8.5 mg/dL (8.4-10.2); CREATININE, SERUM 0.69 mg/dL (0.57-1.11); POTASSIUM 3.9 mmol/L (3.5-5.1)
[2022-09-26] MEDS: INSULIN LISPRO 100 UNIT/1 ML 3ML VIAL SQ SCH ×3 (07:58→16:43)
[2022-09-26 08:19] VITALS: BP 145/83; PULSE 86; RESP 20; TEMP 98; O2SAT 99
[2022-09-26] MEDS: DOCUSATE SODIUM 100 MG CAP PO SCH ×2 (09:00→16:07)
[2022-09-26 09:01] VITALS: BP 145/83; PULSE 86; RESP 20; TEMP 98; O2SAT 99
[2022-09-26] MEDS: PREGABALIN 50 MG CAP PO SCH ×2 (09:39→16:44)
[2022-09-26] MEDS: DULOXETINE HCL 30 MG DELAYED RELEASE PO SCH ×2 (09:39→16:44)
[2022-09-26] MEDS: TIZANIDINE HCL 4 MG TAB PO SCH ×2 (09:39→15:00)
[2022-09-26] MEDS: DICYCLOMINE HCL 20 MG TAB PO SCH ×2 (09:39→13:53)
[2022-09-26] MEDS: CYANOCOBALAMIN INJ 1,000 MCG/ML VIAL IM SCH (09:39)
[2022-09-26] MEDS: IRON SUCROSE 100 MG in SODIUM CHLORIDE 0.9% 100 ML IV SCH (09:40)
[2022-09-26 12:54] VITALS: BP 135/85; PULSE 64; RESP 19; TEMP 97.5; O2SAT 98
[2022-09-26 15:41] VITALS: BP 141/76; PULSE 74; RESP 16; TEMP 98.2; O2SAT 97
== END 2022-09-26 18:06 | disposition home or self-care (01) | DRG 872 ==
LOC: ER 12:36 → INTOOBSV 14:49 → ERHOLD 14:49 → MED/SURG2 19:45 → OBSVTOIN 09-25 13:09
PROVIDERS: ADMIT Internal Medicine; ATTEND Internal Medicine
PROC: 02HV33Z Insertion of Infusion Device into Superior Vena Cava, Percutaneous Approach (ICD-10-PCS; 2022-09-24)
PROC: 3E04329 Introduction of Other Anti-infective into Central Vein, Percutaneous Approach (ICD-10-PCS; principal; 2022-09-25)
DX: A41.9 Sepsis, unspecified organism (principal); K50.90 Crohn's disease, unspecified, without complications; J45.901 Unspecified asthma with (acute) exacerbation; K52.9 Noninfective gastroenteritis and colitis, unspecified; E86.0 Dehydration; J44.9 Chronic obstructive pulmonary disease, unspecified; E03.9 Hypothyroidism, unspecified; K21.9 Gastro-esophageal reflux disease without esophagitis; Z86.16 Personal history of COVID-19; K74.60 Unspecified cirrhosis of liver; K76.0 Fatty (change of) liver, not elsewhere classified; Z88.6 Allergy status to analgesic agent; Z88.0 Allergy status to penicillin; Z88.2 Allergy status to sulfonamides; E83.42 Hypomagnesemia; E78.2 Mixed hyperlipidemia; E11.69 Type 2 diabetes mellitus with other specified complication; D50.9 Iron deficiency anemia, unspecified; M06.9 Rheumatoid arthritis, unspecified; G89.29 Other chronic pain; Z72.0 Tobacco use
CPT/HCPCS: 0223U; 36415; 36569; 71045; 80048; 80053; 80061; 81001; 82607; 82746; 82948; 83036; 83540; 83630; 83690; 83735; 83993; 84100; 84443; 84466; 84484; 85025; 85045; 87040; 87045; 87086; 87177; 87324; 87328; 87449; 93005; 93306; 99284; G0378; J0692; J1756; J2270; J2405; J2765; J3420; J3475; J7030; J7050

== ENCOUNTER 2022-11-08 14:03 | Observation (INO) | payer OTHER ==
[~2022-11-08] VITALS: Ht 172.7 cm; Wt 105.9 kg
[~2022-11-08 14:03] MED LIST changes: +LIOTHYRONINE SO5 MCG PO; -VASCEPA1 GM; +VASCEPA1 GM PO
[2022-11-08] MEDS ORDERED: SODIUM CHLORIDE 0.9% 1000ML 1,000 ML IV ONE (14:30)
[2022-11-08 14:45] LABS: BASOPHILS # (AUTO) 0.1 (0.0-0.1); BASOPHILS % 0.7 % (0.0-1.0); EOSINOPHILS # (AUTO) 0.3 (0.0-0.4); EOSINOPHILS % 2.9 % (0.0-6.0); HEMATOCRIT 43.8 % (34.2-44.1); HEMOGLOBIN 13.8 g/dL (12.0-16.0); LYMPHOCYTES # (AUTO) 3.5 (1.0-3.2); LYMPHOCYTES % 31.3 % (18.0-39.1); MEAN CORPUSCULAR HEMOGLOBIN 22.1 pg (28-32); MEAN CORPUSCULAR HGB CONC 31.5 g/dL (31-35); MEAN CORPUSCULAR VOLUME 70.1 fL (81-99); MONOCYTES # (AUTO) 0.6 (0.2-0.8); MONOCYTES % 5.2 % (4.4-11.3); NEUTROPHILS # (AUTO) 6.7 (2.1-6.9); NEUTROPHILS % 59.5 % (38.7-80.0); PLATELET COUNT 371 x10e3/uL (140-360); RED BLOOD COUNT 6.25 x10e6/uL (3.6-5.1); RED CELL DISTRIBUTION WIDTH 18.7 % (11.7-14.4)
[2022-11-08 14:54] LABS: INR 0.86; PROTHROMBIN TIME 12.2 seconds (11.9-14.5)
[2022-11-08 15:00] LABS: ALBUMIN 3.8 g/dL (3.5-5.0); ALBUMIN/GLOBULIN RATIO 0.9 (0.8-2.0); ANION GAP 17.4 mmol/L (8-16); CREATININE, SERUM 0.72 mg/dL (0.57-1.11); POTASSIUM 4.4 mmol/L (3.5-5.1)
[2022-11-08] MEDS ORDERED: SODIUM CHLORIDE 0.9% IV SCH (15:15)
[2022-11-08] MEDS ORDERED: CEFTRIAXONE 1 GM VIAL IV ONE (15:15)
[2022-11-08] MEDS ORDERED: SODIUM CHLORIDE 0.9% 1000ML 3,000 ML ONE (15:17)
[2022-11-08 15:24] LABS: PARTIAL THROMBOPLASTIN TIME 18.7 seconds (23.8-35.5)
[2022-11-08 16:36] LABS: CLARITY,URINE CLEAR (CLEAR); COLOR,URINE YELLOW (YELLOW)
[2022-11-08 16:37] LABS: KETONES,URINE TRACE (NEGATIVE); LEUKOCYTE ESTERASE ,URINE NEGATIVE (NEGATIVE); NITRITE,URINE NEGATIVE (NEGATIVE); PROTEIN,URINE DIPSTICK 1+ (NEGATIVE); URINE UROBILINOGEN 0.2 mg/dL (0.2 - 1)
[2022-11-08 16:39] LABS: BACTERIA,URINE FEW /HPF; EPITHELIAL CELLS,URINE FEW /LPF; MUCUS,URINE MODERATE (RARE); WBC,URINE (MAN) 0-5 /HPF (0-5)
[2022-11-08] MEDS ORDERED: ONDANSETRON HCL INJ 2MG/ML 2ML 2 MG/ML VIAL IV PRN (17:00)
[2022-11-08] MEDS: SODIUM CHLORIDE 0.9% 1000ML 1,000 ML IV SCH (18:28)
[2022-11-08 20:00] VITALS: BP_SYST 156; BP_SYST 157; BP_DIAS 80; BP_DIAS 88; PULSE 95; RESP 19; RESP 20; TEMP 98.2; O2SAT 95; O2SAT 98
[2022-11-08 21:45] VITALS: BP 157/80; PULSE 95; RESP 19; TEMP 98.2; O2SAT 19; O2SAT 91
[2022-11-08] MEDS: HYDROCODONE/APAP 10MG-325MG TAB PO PRN (23:33)
[2022-11-09] VITALS (8 sets, daily range): BP systolic 117–173; BP diastolic 56–85; PULSE 73–96; RESP 17–22; TEMP 97.9–98.2; O2SAT 93–98
[2022-11-09] MEDS ORDERED: SIMETHICONE 80 MG CHEW PO PRN (01:45)
[2022-11-09] MEDS ORDERED: ACETAMINOPHEN 325 MG TAB PO PRN (01:45)
[2022-11-09] MEDS ORDERED: DIPHENHYDRAMINE HCL 25 MG CAP PO PRN (01:45)
[2022-11-09] MEDS ORDERED: HYDRALAZINE HCL 20 MG/ML VIAL IV PRN (01:45)
[2022-11-09] MEDS ORDERED: DEXTROSE 50% SYRINGE 50 ML IV PRN ×2 (01:45→07:15)
[2022-11-09] MEDS ORDERED: ALBUTEROL/IPRATROPIUM 3 ML NEB NEB PRN (01:45)
[2022-11-09] MEDS ORDERED: DOCUSATE SODIUM 100 MG CAP PO PRN (01:45)
[2022-11-09] MEDS ORDERED: PHENAZOPYRIDINE HCL 100 MG TAB PO PRN (01:45)
[2022-11-09] MEDS ORDERED: POTASSIUM CHLORIDE 20 MEQ TAB CR PO PRN (01:45)
[2022-11-09] MEDS ORDERED: LIDOCAINE 4% PATCH TP PRN (01:45)
[2022-11-09] MEDS ORDERED: MELATONIN 5 MG TABLET PO PRN (01:45)
[2022-11-09] MEDS ORDERED: IPRATROPIUM BROMIDE 0.02% 2.5 ML NEB NEB PRN (02:00)
[2022-11-09] MEDS ORDERED: ALBUTEROL SULF 0.083% NEB SOLN 3 ML NEB NEB PRN (02:00)
[2022-11-09 06:08] LABS: BASOPHILS # (AUTO) 0.1 (0.0-0.1); BASOPHILS % 0.7 % (0.0-1.0); EOSINOPHILS # (AUTO) 0.3 (0.0-0.4); EOSINOPHILS % 3.3 % (0.0-6.0); HEMATOCRIT 40.4 % (34.2-44.1); HEMOGLOBIN 12.3 g/dL (12.0-16.0); LYMPHOCYTES # (AUTO) 3.1 (1.0-3.2); MEAN CORPUSCULAR HEMOGLOBIN 21.7 pg (28-32); MEAN CORPUSCULAR HGB CONC 30.4 g/dL (31-35); MEAN CORPUSCULAR VOLUME 71.1 fL (81-99); MONOCYTES # (AUTO) 0.4 (0.2-0.8); MONOCYTES % 4.5 % (4.4-11.3); NEUTROPHILS # (AUTO) 5.2 (2.1-6.9); NEUTROPHILS % 57.2 % (38.7-80.0); PLATELET COUNT 331 x10e3/uL (140-360); RED BLOOD COUNT 5.68 x10e6/uL (3.6-5.1); RED CELL DISTRIBUTION WIDTH 17.9 % (11.7-14.4)
[2022-11-09] MEDS: LEVOTHYROXINE SODIUM 75 MCG TAB PO SCH (06:20)
[2022-11-09] MEDS: LIOTHYRONINE SODIUM 5 MCG TAB PO SCH (06:22)
[2022-11-09] MEDS: SODIUM CHLORIDE 0.9% 1000ML 1,000 ML IV SCH ×2 (06:22→14:17)
[2022-11-09 06:31] LABS: ALBUMIN 3.3 g/dL (3.5-5.0); ALBUMIN/GLOBULIN RATIO 0.9 (0.8-2.0); ANION GAP 14.2 mmol/L (8-16); CALCIUM 9.5 mg/dL (8.4-10.2); CREATININE, SERUM 0.62 mg/dL (0.57-1.11); POTASSIUM 4.2 mmol/L (3.5-5.1)
[2022-11-09 06:45] LABS: MAGNESIUM 1.9 MG/DL (1.3-2.1); PHOSPHORUS 4.5 MG/DL (2.3-4.7)
[2022-11-09 07:08] LABS: THYROID STIMULATING HORMONE 1.207 uIU/mL (0.350-4.940)
[2022-11-09] MEDS: INSULIN LISPRO 100 UNIT/1 ML 3ML VIAL SQ SCH ×4 (07:30→21:35)
[2022-11-09] MEDS: METOCLOPRAMIDE HCL 10 MG TAB PO SCH ×3 (08:02→21:36)
[2022-11-09] MEDS: HYDROXYZINE HCL 25 MG TAB PO SCH ×3 (08:02→21:37)
[2022-11-09] MEDS: DICYCLOMINE HCL 20 MG TAB PO SCH ×3 (08:02→21:36)
[2022-11-09] MEDS: PANTOPRAZOLE SOD 40 MG TABEC PO SCH (08:02)
[2022-11-09] MEDS: DULOXETINE HCL 30 MG DELAYED RELEASE PO SCH ×2 (08:02→16:38)
[2022-11-09] MEDS: HYDROCODONE/APAP 10MG-325MG TAB PO PRN ×2 (12:13→21:42)
[2022-11-09] MEDS ORDERED: ENOXAPARIN SOD INJ 40 MG/0.4 ML SYR SC SCH (17:00)
[2022-11-09] MEDS ORDERED: SODIUM CHLORIDE 0.9% 250ML 250 ML ONE (21:41)
[2022-11-10 00:42] VITALS: BP 122/58; PULSE 67; RESP 17; TEMP 97.7; O2SAT 96
[2022-11-10 04:47] VITALS: BP 136/76; PULSE 74; RESP 17; TEMP 98.2; O2SAT 97
[2022-11-10] MEDS: BENZONATATE 100 MG CAP PO PRN ×2 (06:34→14:34)
[2022-11-10] MEDS: LIOTHYRONINE SODIUM 5 MCG TAB PO SCH (06:35)
[2022-11-10] MEDS: LEVOTHYROXINE SODIUM 75 MCG TAB PO SCH (06:35)
[2022-11-10] MEDS: HYDROCODONE/APAP 10MG-325MG TAB PO PRN ×2 (06:35→13:23)
[2022-11-10 07:15] VITALS: PULSE 78; RESP 18; O2SAT 95
[2022-11-10 08:29] VITALS: BP 150/84; PULSE 74; RESP 22; TEMP 98.2; O2SAT 95
[2022-11-10] MEDS: DULOXETINE HCL 30 MG DELAYED RELEASE PO SCH (08:41)
[2022-11-10] MEDS: HYDROXYZINE HCL 25 MG TAB PO SCH ×2 (08:42→14:34)
[2022-11-10] MEDS: PANTOPRAZOLE SOD 40 MG TABEC PO SCH (08:42)
[2022-11-10] MEDS: METOCLOPRAMIDE HCL 10 MG TAB PO SCH ×2 (08:42→14:34)
[2022-11-10] MEDS: DICYCLOMINE HCL 20 MG TAB PO SCH ×2 (08:42→14:34)
[2022-11-10 08:43] VITALS: BP 150/84; PULSE 74; RESP 22; TEMP 98.2; O2SAT 95
[2022-11-10] MEDS: INSULIN LISPRO 100 UNIT/1 ML 3ML VIAL SQ SCH ×2 (08:51→12:16)
[2022-11-10 12:21] VITALS: BP 146/78; PULSE 81; RESP 22; TEMP 98.5; O2SAT 95
[2022-11-10] MEDS ORDERED: ONDANSETRON HCL 4 MG ORAL DISINTEGRATING TAB PO PRN (14:45)
== END 2022-11-10 16:14 | disposition home or self-care (01) ==
LOC: ER 14:13 → ERHOLD 16:59 → MED/SURG2 20:46 → MED/SURG3 11-09 17:54
PROVIDERS: ADMIT Internal Medicine; ATTEND Internal Medicine
DX: J06.9 Acute upper respiratory infection, unspecified (principal); B97.89 Other viral agents as the cause of diseases classified elsewhere; R05.9 Cough, unspecified; R09.81 Nasal congestion; E03.9 Hypothyroidism, unspecified; E78.5 Hyperlipidemia, unspecified; E11.9 Type 2 diabetes mellitus without complications; Z79.4 Long term (current) use of insulin; F32.A Depression, unspecified; K21.9 Gastro-esophageal reflux disease without esophagitis; M54.9 Dorsalgia, unspecified; G89.4 Chronic pain syndrome; Z11.52 Encounter for screening for COVID-19; Z79.899 Other long term (current) drug therapy
CPT/HCPCS: 36415 ×3; 71046; 80053 ×2; 81001; 82948 ×3; 83036; 83605; 83735; 84100; 84443; 85025 ×2; 85610; 85730; 87040; 94799 ×2; 99284; G0378 ×3; J0692 ×2; J0696; J1650; J2405; J3410 ×2; J7030 ×2; J7050; J8597 ×2; S0164 ×2; U0002

== ENCOUNTER → 2024-07-23 | Day surgery (SDC) | payer OTHER ==
[~2024-07-23] MED LIST changes: +DEXTROSE 5% 250ML 250 ML IV ONE; +GLUCAGON FOR INJ 1 MG VIAL ONE; +HYOSCYAMINE SULFATE 0.5 MG/ML INJ ONE; +OMEPRAZOLE40 MG PO; +TRESIBA100 UNIT/1
[2024-07-23] MEDS: LACTATED RINGER'S 1,000 ML BAG IV ONE (07:45)
[2024-07-23 07:55] LABS: INR 0.9; PROTHROMBIN TIME 12.7 seconds (11.9-14.5)
[2024-07-23 08:02] LABS: ALBUMIN 3.6 g/dL (3.5-5.0); ALBUMIN/GLOBULIN RATIO 1.1 (0.8-2.0); ANION GAP 15.7 mmol/L (8-16); BILIRUBIN,TOTAL 0.5 mg/dL (0.2-1.2); CALCIUM 9.5 mg/dL (8.4-10.2); CREATININE, SERUM 0.67 mg/dL (0.57-1.11); POTASSIUM 3.7 mmol/L (3.5-5.1); TOTAL PROTEIN 6.9 g/dL (6.5-8.1)
[2024-07-23 08:18] LABS: BASOPHILS % 0.4 % (0.0-1.0); EOSINOPHILS # (AUTO) 0.1 (0.0-0.4); EOSINOPHILS % 1.2 % (0.0-6.0); HEMATOCRIT 38.7 % (34.2-44.1); HEMOGLOBIN 11.5 g/dL (12.0-16.0); LYMPHOCYTES # (AUTO) 2.6 (1.0-3.2); LYMPHOCYTES % 25.2 % (18.0-39.1); MEAN CORPUSCULAR HGB CONC 29.7 g/dL (31-35); MEAN CORPUSCULAR VOLUME 70.6 fL (81-99); MONOCYTES # (AUTO) 0.5 (0.2-0.8); NEUTROPHILS # (AUTO) 7.1 (2.1-6.9); NEUTROPHILS % 67.7 % (38.7-80.0); PLATELET COUNT 267 x10e3/uL (140-360); RED BLOOD COUNT 5.48 x10e6/uL (3.6-5.1); RED CELL DISTRIBUTION WIDTH 17.6 % (11.7-14.4); WHITE BLOOD COUNT 10.49 x10e3/uL (4.8-10.8)
[2024-07-23 09:55] VITALS: BP 119/76; PULSE 81; RESP 16; TEMP 98.1; O2SAT 100
[2024-07-27 07:13] LABS: ENDOMYSIAL ANTIBODIES, IGA Negative (Negative)
[2024-07-27 08:27] LABS: IMMUNOGLOBULIN A 178 mg/dL (87-352); TISSUE TRANSGLUTAMINASE IGA AB <2 U/mL (0-3)
== END | disposition home or self-care (01) ==
LOC: OR 06:36
PROVIDERS: ATTEND Internal Medicine Gastroenterology
DX: R13.10 Dysphagia, unspecified (principal); Z86.0100 Personal history of colon polyps, unspecified; K29.70 Gastritis, unspecified, without bleeding; K22.89 Other specified disease of esophagus; K21.9 Gastro-esophageal reflux disease without esophagitis; K59.00 Constipation, unspecified; K74.60 Unspecified cirrhosis of liver; G47.33 Obstructive sleep apnea (adult) (pediatric); E11.9 Type 2 diabetes mellitus without complications; J44.9 Chronic obstructive pulmonary disease, unspecified; E66.01 Morbid (severe) obesity due to excess calories; G40.909 Epilepsy, unspecified, not intractable, without status epilepticus; F17.200 Nicotine dependence, unspecified, uncomplicated; Z88.0 Allergy status to penicillin; Z88.2 Allergy status to sulfonamides; Z88.8 Allergy status to other drugs, medicaments and biological substances; Z79.4 Long term (current) use of insulin; Z79.899 Other long term (current) drug therapy
CPT/HCPCS: 36415; 43239; 43450; 45378; 80053; 82784; 82948; 83516; 85025; 85610; 85730; 86256; 93005; J1610; J1980; J2470; J7121